=== PATIENT | male | born 1975 | race Caucasian/White ===

== ENCOUNTER 2019-04-05 14:00 | Emergency (ER) | payer BC ==
[~2019-04-05] VITALS: Ht 172 cm; Wt 63.6 kg
[~2019-04-05 14:00] MED LIST: PANT20TA2 PO; SUCR1TAB23 PO
[2019-04-05] MEDS ORDERED: METH-313 PO (14:54)
--- NOTE | 2019-04-05 14:55 | ED Back Pain ---
General Chief Complaint: Back Problems Stated Complaint: BACK PAIN Nursing Triage Note: Patient reports L shoulder/neck/arm pain for 2 months. patient reports getting script for muscle relaxer and pain medication which didn't help. also tried chiropractor x2 without relief Nursing Sepsis Screen: No Definite Risk Source of Information: Patient Exam Limitations: No Limitations History of Present Illness Date Seen by Provider: Apr 05, 2019 Time Seen by Provider: 14:51 Initial Comments To ER with reports of right-sided neck and arm pain for couple of months, he is also recently had left midline shoulder blade pain. Location: Lumbar Spine Timing/Duration: Other Severity: Moderate Associated Symptoms: denies symptoms Allergies and Home Medications Allergies Coded Allergies: No Known Drug Allergies (Unverified , 08/07/14) Home Medications Pantoprazole Sodium 20 Mg Tablet.dr, 40 MG PO DAILY Prescribed by: MICHAEL LEIGH on 08/07/14 1130 Sucralfate 1 Gm Tablet, 1 GM PO QID Prescribed by: MICHAEL LEIGH on 08/07/14 1130 Patient Home Medication List Home Medication List Reviewed: Yes Review of Systems Constitutional: see HPI EENTM: see HPI Respiratory: no symptoms reported Cardiovascular: no symptoms reported Genitourinary: no symptoms reported Musculoskeletal: no symptoms reported Skin: no symptoms reported Psychiatric/Neurological: See HPI Past Swloeqn-Pprcsa-Ipdwdg Hx Patient Social History Alcohol Use: Denies Use Recreational Drug Use: No Smoking Status: Former Smoker Type Used: Smokeless Tobacco Recent Foreign Travel: No Contact w/Someone Who Travel: No Recent Infectious Disease Expo: No Past Medical History Surgeries: Yes Orthopedic Respiratory: No Cardiac: No Neurological: No Genitourinary: No Gastrointestinal: No Musculoskeletal: No Endocrine: No Psychosocial: No Integumentary: No Blood Disorders: No Physical Exam Vital Signs Vital Signs - First Documented 04/05/19 14:19 Temp 36.8 Pulse 98 Resp 18 B/P (MAP) 164/105 (124) Pulse Ox 98 Capillary Refill : Less Than 3 Seconds Height, Weight, BMI Height: 5'8.00" Weight: 131lbs. oz. 59.430982hx; 21.00 BMI Method: General Appearance: No Apparent Distress, WD/WN HEENT: PERRL/EOMI, TMs Normal Neck: Full Range of Motion, Normal Inspection Respiratory: No Accessory Muscle Use, No Respiratory Distress Gastrointestinal: Non Tender, Soft Extremity: Normal Capillary Refill Neurologic/Psychiatric: Alert, Oriented x3 Skin: Normal Color, Warm/Dry Tenderness to palpation left medial border of scapula back is normal in appearance Progress/Results/Core Measures Results/Orders My Orders Orders - JAMAL RIVERA APRN Chest Pa/Lat (2 View) (04/05/19 14:50) Vital Signs/I&O 04/05/19 14:19 Temp 36.8 Pulse 98 Resp 18 B/P (MAP) 164/105 (124) Pulse Ox 98 Blood Pressure Mean: 124 Departure Impression Primary Impression: Pain of left scapula Disposition: HOME, SELF-CARE Condition: Stable Departure-Patient Inst. Decision time for Depature: 14:53 Referrals: NO,LOCAL PHYSICIAN (PCP/Family) Primary Care Physician Patient Instructions: Upper Back Pain (DC), Radiculopathy (DC) Add. Discharge Instructions: Follow-up with your regular doctor next week to discuss obtaining an MRI of the neck which could be contributing to the pain in her arms and shoulder blade region. Muscle relaxer as directed in the meantime. All discharge instructions reviewed with patient and/or family. Voiced understanding. Scripts Methocarbamol (Robaxin-750) 750 Mg Tablet 750 MG PO Q4H PRN for PAIN-SEVERE, #30 TAB Prov: JAMAL RIVERA APRN 04/05/19 JAMAL RIVERA APRN Apr 05, 2019 14:55
--- NOTE | 2019-04-05 15:14 | Diagnostic Imaging Report ---
Patient History: Upper thoracic pain for 6 months. Technique: Two views of the chest Comparison: 12/27/2012 FINDINGS: The lung volumes are normal. No focal consolidation is seen. No large pleural effusion or pneumothorax is seen. The cardiomediastinal silhouette is normal in size and contour. No acute osseous abnormality is seen. IMPRESSION: 1. No acute pleuroparenchymal process. Dictated by: Dictated on workstation # [id number]
[2019-04-05 15:28] VITALS: BP 164/105
== END 2019-04-05 15:29 | disposition home or self-care (01) ==
LOC: EDUNIT# 14:00 → ER 14:01
DX: M25.512 Pain in left shoulder (principal); Z87.891 Personal history of nicotine dependence
CPT/HCPCS: 71046

== ENCOUNTER 2022-05-17 05:38 | Outpatient (CLI) | payer BC ==
[~2022-05-17] VITALS: Ht 172.7 cm; Wt 63.6 kg
[~2022-05-17 05:38] MED LIST changes: +METH-313 PO
== END 2022-05-19 10:06 | disposition home or self-care (01) ==
LOC: PREOP 05:38
PROVIDERS: ATTEND Surgery
DX: Z01.818 Encounter for other preprocedural examination (principal)

== ENCOUNTER 2022-05-24 10:20 | Day surgery (SDC) | payer BC ==
[~2022-05-24] VITALS: Ht 172.7 cm; Wt 63.6 kg
[2022-05-24] MEDS ORDERED: LACTATED RINGERS 1,000 ML IV STA (10:22)
[2022-05-24] MEDS ORDERED: HURRICAINE EXT TUBE (BENZOCAINE) XX PRN (10:30)
[2022-05-24 10:35] VITALS: BP 139/87
--- NOTE | 2022-05-24 11:06 | Progress Note-Pre Operative ---
Pre-Operative Progress Note Date of Available H&P: May 24, 2022 Date H&P Reviewed: May 24, 2022 Time H&P Reviewed: 10:30 History & Physical: No changes noted Pre-Operative Diagnosis: GERD, screening o MICHAEL LEIGH MD May 24, 2022 11:06
[2022-05-24] MEDS ORDERED: PANT40TA2 PO (11:07)
--- NOTE | 2022-05-24 11:07 | Discharge Inst-Surgical ---
D/C Lap Instructions-KIDO New, Converted, or Re-Newed RX: RX on Chart Follow Up Activity as tolerated High Fiber Diet 25g or more per day Avoid Alcohol, Caffeine, Spicy [place] and Acid foods. Drink 64 fluid oz or more of fluids per day. Symptoms to Report: Fever over 101 degree F, Nausea/Vomiting If any problems/questions: Contact your physician or go to Emergency Room MICHAEL LEIGH MD May 24, 2022 11:07
[2022-05-24] MEDS ORDERED: ONDANSETRON 4 MG (ZOFRAN) ORAL DISSOLVE TAB PO PRN (11:15)
[2022-05-24] MEDS ORDERED: ONDANSETRON 4 MG/2 ML (SDV) Z0FRAN IVP PRN (11:15)
[2022-05-24] MEDS ORDERED: PROPOFOL INJECTION 50 ML IV ONE (11:35)
[2022-05-24] MEDS ORDERED: LIDOCAINE JELLY 2% 6 ML SYRINGE ONE (11:40)
[2022-05-24] MEDS ORDERED: LIDOCAINE JELLY 2% 6 ML SYRINGE TOP ONE (12:00)
--- NOTE | 2022-05-24 12:22 | Anesthesia-General Post-Op ---
MAC Patient Condition Mental Status/LOC: Same as Preop Cardiovascular: Satisfactory Nausea/Vomiting: Absent Respiratory: Satisfactory Pain: Controlled Complications: Absent Post Op Complications Complications None Follow Up Care/Instructions Patient Instructions None needed. Anesthesiology Discharge Order Discharge Order Patient is doing well, no complaints, stable vital signs, no apparent adverse anesthesia problems. No complications reported per nursing. SHANTA CHONG CRNA May 24, 2022 12:22
[2022-05-24 12:27] VITALS: BP 94/59
[2022-05-24 12:32] VITALS: BP 97/59
[2022-05-24 12:37] VITALS: BP 105/64
[2022-05-24 12:42] VITALS: BP 103/65
[2022-05-24 12:45] VITALS: BP 103/65
--- NOTE | 2022-05-24 12:48 | Progress Note-Post Operative ---
Post-Operative Progess Note Surgeon (s)/Wrecking Car Driver (s) Surgeon MICHAEL LEIGH MD Wrecking Car Driver: none Pre-Operative Diagnosis GERD, screening colo Post-Operative Diagnosis reflux esophagitis(grade B), small HH(1.5cm), moderate gastritis. mild chronic stage 1 ext and int hemorrhoids. Procedure & Operative Findings Date of Procedure 05/24/22 Procedure Performed/Findings EGD with bx. Colonoscopy. Anesthesia Type mac Estimated Blood Loss Estimated blood loss (mL): minimal Specimens/Packing Specimens Removed ge jxn, antrum MICHAEL LEIGH MD May 24, 2022 12:48
--- NOTE | 2022-05-24 20:28 | OPERATIVE REPORT ---
DATE OF SERVICE: 05/24/2022 ATTENDING PRIMARY CARE PHYSICIAN: Dr. Milton Marcus. PREOPERATIVE DIAGNOSES: Gastroesophageal reflux disease, screening colonoscopy with family history of colon cancer. POSTOPERATIVE DIAGNOSES: Reflux esophagitis, [place] grade B, small hiatal hernia, 1.5 cm in size. Moderate gastritis, mild chronic stage I, external and internal hemorrhoids. PROCEDURE: EGD with biopsy, colonoscopy. SURGEON: Dr. Leigh. ANESTHESIA: Monitored anesthesia care. ESTIMATED BLOOD LOSS: Minimal. FINDINGS: Reflux esophagitis, [place] grade B, small hiatal hernia, 1.5 cm in size. Moderate gastritis, mild chronic stage I, external and internal hemorrhoids. DISPOSITION: The patient tolerated the procedure well. INDICATIONS: The patient is a 46-year-old male referred over to us for gastroesophageal reflux disease as well as for screening colonoscopy. We have done an EGD on him in the past due to gastritis and we started PPI acid technical services specialist at that time on him. He states that he felt better and eventually discontinued the medication; however, he has had recurrent episodes of reflux with epigastric burning sensation and pain. He also does report occasional episodes of constipation, no diarrhea, no red blood per rectum, nor any dark tarry stools. He has not had a colonoscopy at this point in his life and does report a remote family history of colon cancer with two cousins having the disease as well as a maternal grandmother having the disease as well. DESCRIPTION OF PROCEDURE: The patient was brought to the endoscopy suite and laid in left lateral decubitus position. After adequate IV pain and sedative medications and monitored anesthesia care, the mouthpiece was applied. The endoscope was placed in the mouth, visualizing the pharynx and hypopharyngeal region. Vocal cords, epiglottis and vallecula identified and appeared to be normal. The endoscope was then gently intubated at the esophageal opening and esophagus insufflated. The endoscope was then gently advanced at esophageal opening, esophagus insufflated. The endoscope was advanced into the first, second and third portion of the esophagus to the level of the GE junction. Reflux esophagitis, [place] grade B identified. No ulcers or strictures identified and a biopsy was taken with forceps with visualization of good hemostasis. The endoscope was then advanced into the stomach and the endoscope retroflexed visualizing a small hiatal hernia approximately 1.5 cm in size. There was a moderate severity gastritis and a biopsy was taken of the antrum to rule out H. pylori. The endoscope was then advanced through the pylorus and the first and second portion of the duodenum, which appeared normal with no distal obstructions. The endoscope was then slowly withdrawn, take a second look and suctioning of residual air with no additional findings. Digital rectal examination was performed which revealed mild chronic stage I, external and internal hemorrhoids, not actively edematous or inflamed and no bleeding. Normal sphincter tone was felt and there were no palpable masses. Prostate gland was palpable and appeared normal. The endoscope was then intubated to the anus, rectum and gently insufflated. The endoscope was then advanced through the valves of [place] of the rectum with no polyps or any neoplasms identified. We then proceeded through the sigmoid colon. There were no diverticulosis identified. The endoscope was then advanced through the remainder of the descending, transverse and ascending colon to the cecum, which were normal. There were no polyps or any neoplasms identified throughout the colon or rectum. The endoscope was then slowly withdrawn while taking a second look and suctioning of residual air with no additional findings. The patient tolerated the procedure well. We will recommend the necessary lifestyle and dietary accommodations including small and more frequent meals, avoiding eating at night as well as head elevation while lying supine. He also needs to moderate or discontinue chewing tobacco as well as caffeinated beverages, which are definite risk factors for reflux. We will also start him on Protonix 40 mg daily. We will also recommend a high fiber diet with fibre supplement, which should equal or exceed 30 grams daily to promote soft stools on a daily basis. He does not have any first-degree family history of colon cancer; however, does have a number of family members with a history of colon cancer, which may slightly increase his risk for the development of colon cancer and if he wishes, he may proceed with screening colonoscopies every five years. Job ID: [id number] DocumentID: [id number] Dictated Date: 05/24/2022 12:30:09 Stave Log Ripsaw Operator Date: 05/24/2022 20:00:00 Dictated By: MICHAEL LEIGH MD
== END 2022-05-24 13:30 | disposition home or self-care (01) ==
LOC: ENDO 10:20
PROVIDERS: ATTEND Surgery
DX: Z12.11 Encounter for screening for malignant neoplasm of colon (principal); K21.00 Gastro-esophageal reflux disease with esophagitis, without bleeding; K92.1 Melena; K44.9 Diaphragmatic hernia without obstruction or gangrene; K29.50 Unspecified chronic gastritis without bleeding; K29.70 Gastritis, unspecified, without bleeding; K64.0 First degree hemorrhoids; K64.4 Residual hemorrhoidal skin tags; Z80.0 Family history of malignant neoplasm of digestive organs; Z87.891 Personal history of nicotine dependence
CPT/HCPCS: 88305